=== PATIENT | female | born 1985 | race Caucasian/White ===

== ENCOUNTER 2020-08-07 16:48 | Emergency (ER) | payer OTHER ==
[~2020-08-07] VITALS: Ht 154.9 cm; Wt 74.8 kg
[2020-08-07 16:51] VITALS: Ht 154.9 cm; Wt 74.8 kg
[2020-08-07 17:15] VITALS: BP 128/81
== END 2020-08-07 17:15 | disposition home or self-care (01) ==
LOC: ED 16:48
DX: S09.90XA Unspecified injury of head, initial encounter (principal); W22.8XXA Striking against or struck by other objects, initial encounter; Y93.89 Activity, other specified; Y92.89 Other specified places as the place of occurrence of the external cause; Y99.8 Other external cause status